=== PATIENT | female | born 1955 | race African-American/Black ===

== ENCOUNTER 2023-01-04 13:50 | Emergency (ER) | payer MEDICAID, MEDICARE, OTHER ==
[~2023-01-04] VITALS: Ht 167.6 cm; Wt 91.0 kg
[2023-01-04 14:07] VITALS: BP 140/80; PULSE 90; RESP 16; O2SAT 98
[2023-01-04] MEDS ORDERED: ONDANSETRON 4MG ODT PO ONE (14:15)
[2023-01-04] MEDS ORDERED: ACETAMINOPHEN 325MG TABLET PO ONE (14:15)
[2023-01-04 15:04] LABS: CHLORIDE 103 mEq/L (98-107); INDEX HEMOLYSI 1 (1-3); INDEX ICTERIC 1 (1-4); INDEX LIPEMIC 1 (1-3); SODIUM 137 mEq/L (136-145)
[2023-01-04 15:07] LABS: BASOPHILS % 0.8 % (0.0-2.0); EOSINOPHILS % 0.5 % (0.0-5.0); HEMATOCRIT. 40.5 % (36.0-48.0); HEMOGLOBIN. 13.6 g/dL (12.0-16.0); LYMPHOCYTES % 27.9 % (20.0-50.0); MEAN CORPUSCULAR HEMOGLOBIN 31.5 pg (28.0-32.0); MEAN CORPUSCULAR HGB CONC 33.6 g/dL (31.0-37.0); MEAN CORPUSCULAR VOLUME 93.6 fL (81.0-99.0); MEAN PLATELET VOLUME 7.7 fl (7.4-10.4); MONOCYTES % 9.1 % (2.0-8.0); NEUTROPHILS % 61.7 % (40.0-76.0); PLATELET 359 x1000/uL (130-400); RED BLOOD CELL COUNT 4.33 mill/uL (4.2-5.4); RED CELL DISTRIBUTION WIDTH 13.7 % (11.6-14.6); WHITE BLOOD COUNT 6.4 x1000/uL (4.5-11.0)
[2023-01-04 15:16] LABS: ALANINE AMINOTRANSFERASE 25 IU/L (13-61); ALBUMIN 3.6 g/dL (3.4-5.0); ASPARTATE AMINOTRANSFERASE 23 IU/L (15-37); BILIRUBIN TOTAL 0.4 mg/dL (0.1-1.0); CALCIUM 9.4 mg/dL (8.5-10.1); CARBON DIOXIDE 28 mEq/L (21-32); CREATININE 0.7 mg/dL (0.6-1.3); GLUCOSE 105 mg/dL (70-105); PROTEIN TOTAL 8.4 g/dL (6.0-8.3); TROPONIN I HIGH SENSITIVITY 4 ng/L (<54); UREA NITROGEN BLOOD 11 mg/dL (7-21)
[2023-01-04 17:30] VITALS: TEMP 98.5
[2023-01-04] MEDS ORDERED: ONDANSETRON 4MG ODT PO NR (17:30)
[2023-01-04] MEDS ORDERED: ACETAMINOPHEN 325MG TABLET PO NR (17:30)
== END 2023-01-04 20:30 | disposition home or self-care (01) ==
LOC: ER 13:50
DX: K80.20 Calculus of gallbladder without cholecystitis without obstruction (principal); R10.13 Epigastric pain
CPT/HCPCS: 99284; 76705; 80053; 83690; 85025; 84484; 36415; 93005; Q0162